=== PATIENT | female | born 1965 | race Caucasian/White ===

== ENCOUNTER 2017-06-29 11:29 | Emergency (ER) | payer SELFPAY ==
[~2017-06-29] VITALS: Ht 167.6 cm; Wt 81.8 kg
[2017-06-29 13:20] LABS: BASOPHILS % (AUTO) 0.5 % (0.0-2.0); EOSINOPHILS % (AUTO) 1.6 % (1.0-6.0); HEMATOCRIT 36.3 % (36-46); HEMOGLOBIN 12.5 g/dL (12.0-16.0); LYMPHOCYTES # (AUTO) 1.8 K/uL (1.0-4.8); LYMPHOCYTES % (AUTO) 23.1 % (22.0-44.0); MEAN CORPUSCULAR HEMOGLOBIN 29.3 pg (26.0-34.0); MEAN CORPUSCULAR HGB CONC 34.5 G/dL (31.0-37.0); MEAN CORPUSCULAR VOLUME 85 fL (80-100); MONOCYTES # (AUTO) 0.5 K/uL (0.1-1.0); NEUTROPHILS # (AUTO) 5.4 K/uL (1.8-7.7); NEUTROPHILS % (AUTO) 68.8 % (40.0-70.0); RED BLOOD CELL COUNT(AUTO) 4.28 MIL/uL (4.00-5.20); RED CELL DISTRIBUTION WIDTH 13.3 % (11.5-14.5)
[2017-06-29 14:03] LABS: PLATELET COUNT (AUTO) 235 K/uL (150-450)
[2017-06-29 14:19] VITALS: BP 140/75
[2017-06-29] MEDS ORDERED: KETOROLAC TROMETHAMINE 30 MG/ML VIAL IM ONE (15:15)
== END 2017-06-29 15:50 | disposition home or self-care (01) ==
LOC: EMS 11:32
DX: D25.9 Leiomyoma of uterus, unspecified (principal); D64.9 Anemia, unspecified; Z90.49 Acquired absence of other specified parts of digestive tract
CPT/HCPCS: 36415; 76856; 84703; 85025; 96372; 99285; J1885

== ENCOUNTER 2018-05-19 19:56 | Emergency (ER) | payer MEDICAID ==
[~2018-05-19] VITALS: Ht 165.1 cm; Wt 77.3 kg
[2018-05-19] MEDS ORDERED: IBUPROFEN 800 MG TABLET PO ONE (21:15)
[2018-05-19 22:06] VITALS: BP 143/85
== END 2018-05-19 22:15 | disposition home or self-care (01) ==
LOC: EMS 19:58
DX: R60.0 Localized edema (principal); I10 Essential (primary) hypertension

== ENCOUNTER 2018-05-24 09:15 | Emergency (ER) | payer MEDICAID ==
[~2018-05-24] VITALS: Ht 152.4 cm; Wt 77.3 kg
[2018-05-24 09:18] VITALS: BP 149/59
[2018-05-24] MEDS ORDERED: LISI-661 PO (09:32)
[2018-05-24] MEDS ORDERED: CEPH500 PO (09:33)
[2018-05-24] MEDS ORDERED: CEFTAROLINE 600 MG/D5W 250 ML IV ONE (11:45)
[2018-05-24] MEDS ORDERED: IBUPROFEN 800 MG TABLET PO ONE (11:45)
[2018-05-24 12:50] LABS: ANION GAP 7 mmol/L (8-16); CALCIUM, TOTAL 8.5 mg/dL (8.8-10.5); CARBON DIOXIDE 27 mmol/L (22-29); CHLORIDE 104 mmol/L (98-107); CREATININE 0.44 mg/dL (0.60-1.30); GLOMERULAR FILTR. RATE CALC > 60 mL/min (>60); GLUCOSE,RANDOM 92 mg/dL (70-110); POTASSIUM 3.9 mmol/L (3.5-5.1); SODIUM SERUM 138 mmol/L (136-145); UREA NITROGEN, BLOOD 12 mg/dL (7-18)
[2018-05-24 12:56] LABS: ALANINE AMINOTRANSFERASE 32 U/L (12-78); ALBUMIN 3.6 g/dL (3.4-5.0); ALKALINE PHOSPHATASE 80 U/L (46-116); ASPARTATE AMINOTRANSFERASE 18 U/L (15-37); BILIRUBIN,TOTAL 0.5 mg/dL (0.1-1.0); TOTAL PROTEIN, SERUM 7.7 g/dL (6.4-8.2)
== END 2018-05-24 13:41 | disposition home or self-care (01) ==
LOC: EMS 09:16
DX: S66.121A Laceration of flexor muscle, fascia and tendon of left index finger at wrist and hand level, initial encounter (principal); L08.9 Local infection of the skin and subcutaneous tissue, unspecified; I10 Essential (primary) hypertension; W25.XXXA Contact with sharp glass, initial encounter; Y93.89 Activity, other specified; Y92.89 Other specified places as the place of occurrence of the external cause; Y99.8 Other external cause status
CPT/HCPCS: 29125; 36415; 73130; 80053; 96365; 99284; J0712

== ENCOUNTER 2021-11-28 10:00 | Emergency (ER) | payer MEDICAID ==
[~2021-11-28] VITALS: Ht 154.9 cm; Wt 72.7 kg
[~2021-11-28 10:00] MED LIST: CEPH-558 PO; LISI-893 PO
[2021-11-28] MEDS ORDERED: ATOR10TA84 PO (10:13)
[2021-11-28] MEDS ORDERED: DiphenhydrAMINE HCL 50 MG/ML VIAL IVP ONE (10:15)
[2021-11-28] MEDS ORDERED: SODIUM CHLORIDE 0.9% 1,000 ML IV ONE (10:15)
[2021-11-28] MEDS ORDERED: METOCLOPRAMIDE HCL 5 MG/ML 2 ML VIAL IVP ONE (10:15)
[2021-11-28 10:38] LABS: BASOPHILS % (AUTO) 0.8 % (0.0-2.0); EOSINOPHILS % (AUTO) 1.9 % (1.0-6.0); HEMATOCRIT 38.7 % (36-46); HEMOGLOBIN 13.4 g/dL (12.0-16.0); LYMPHOCYTES # (AUTO) 1.7 K/uL (1.0-4.8); LYMPHOCYTES % (AUTO) 35.2 % (22.0-44.0); MEAN CORPUSCULAR HEMOGLOBIN 29.4 pg (26.0-34.0); MEAN CORPUSCULAR HGB CONC 34.6 G/dL (31.0-37.0); MEAN CORPUSCULAR VOLUME 85 fL (80-100); MONOCYTES # (AUTO) 0.3 K/uL (0.1-1.0); MONOCYTES % (AUTO) 6.4 % (2.0-9.0); NEUTROPHILS # (AUTO) 2.8 K/uL (1.8-7.7); NEUTROPHILS % (AUTO) 55.7 % (40.0-70.0); PLATELET COUNT (AUTO) 300 K/uL (150-450); RED BLOOD CELL COUNT(AUTO) 4.56 MIL/uL (4.00-5.20)
[2021-11-28 10:48] LABS: ANION GAP 8 mmol/L (8-16); CARBON DIOXIDE 27 mmol/L (22-29); CHLORIDE 99 mmol/L (98-107); CREATININE 0.61 mg/dL (0.60-1.30); GLOMERULAR FILTR. RATE CALC > 60 mL/min (>60); GLUCOSE,RANDOM 104 mg/dL (70-110); POTASSIUM 4.1 mmol/L (3.5-5.1); SODIUM SERUM 134 mmol/L (136-145); UREA NITROGEN, BLOOD 13 mg/dL (7-18)
[2021-11-28 10:55] LABS: ALANINE AMINOTRANSFERASE 25 U/L (12-78); ALBUMIN 3.7 g/dL (3.4-5.0); ALKALINE PHOSPHATASE 83 U/L (46-116); ASPARTATE AMINOTRANSFERASE 14 U/L (15-37); BILIRUBIN,TOTAL 0.4 mg/dL (0.1-1.0); TOTAL PROTEIN, SERUM 7.7 g/dL (6.4-8.2)
[2021-11-28 11:55] VITALS: BP 149/69
== END 2021-11-28 12:27 | disposition home or self-care (01) ==
LOC: EMS 10:00
DX: R51.9 Headache, unspecified (principal); R42 Dizziness and giddiness; F41.9 Anxiety disorder, unspecified; E78.00 Pure hypercholesterolemia, unspecified; I10 Essential (primary) hypertension; Z87.42 Personal history of other diseases of the female genital tract; Z90.49 Acquired absence of other specified parts of digestive tract; Z73.3 Stress, not elsewhere classified
CPT/HCPCS: 36415; 70450; 80053; 85025; 96361; 96374; 96375; 99284; J1200; J2765; J7030

== ENCOUNTER 2022-07-13 11:39 | Emergency (ER) | payer MEDICAID ==
[~2022-07-13] VITALS: Ht 152.4 cm; Wt 77.3 kg
[~2022-07-13 11:39] MED LIST changes: +ATOR10TA PO; -CEPH-558 PO
[2022-07-13] MEDS ORDERED: LIDOCAINE 1% 10 ML VIAL ID ONE (12:45)
[2022-07-13 14:30] VITALS: BP 139/85
[2022-07-13] MEDS ORDERED: CEPH-558 PO (14:31)
[2022-07-13] MEDS ORDERED: SULF-261 PO (14:31)
== END 2022-07-13 14:42 | disposition home or self-care (01) ==
LOC: EMS 11:54
DX: L02.11 Cutaneous abscess of neck (principal); E78.00 Pure hypercholesterolemia, unspecified; I10 Essential (primary) hypertension; N83.209 Unspecified ovarian cyst, unspecified side; Z90.49 Acquired absence of other specified parts of digestive tract
CPT/HCPCS: 99283; 10060; 82962; J3490